=== PATIENT | male | born 1990 | race Caucasian/White ===

== ENCOUNTER 2018-02-24 06:40 | Emergency (ER) | payer OTHER ==
[~2018-02-24] VITALS: Ht 175.3 cm; Wt 123.9 kg
[~2018-02-24 06:40] MED LIST: LISI30TA6 PO; METF1000 PO; ZIPR60CA1 PO
[2018-02-24 06:48] VITALS: BP 151/90
--- NOTE | 2018-02-24 06:54 | NUR ---
27 Y/O M BIBA W/C/O PRESSURE CHEST PAIN WHICH RADIATES TO R ARM. PER EMS ASPIRIN 324MG GIVEN PO, 0.4MG GIVEN SUBLINGUAL X 1. PER PT PAIN WAS RELIEVED AFTER ASPIRIN AND NITRO. PAIN 0/10 AT THE MOMENT. MED HX DM,HYPERLIPEDEMIA, DM, BIPOLAR DISORDER, SCHIZOPHRENIA, AND ANXIETY. ER MD MADE AWARE.
--- NOTE | 2018-02-24 07:10 | NUR ---
Pt report given to NEY TALLEY. Transfer of care at this time.
--- NOTE | 2018-02-24 07:15 | NUR ---
REPORT RECEIVED FROM NEY KO. XRAY AT BEDSIDE.
[2018-02-24] MEDS ORDERED: LORazepam 2 MG/ML VIAL IVP ONE (07:45)
[2018-02-24 07:47] LABS: BASOPHILS # (AUTO) 0.3 K/uL (0.00-0.22); BASOPHILS % (AUTO) 2.8 % (0.0-2.0); EOSINOPHILS # (AUTO) 0.1 K/uL (0-0.4); EOSINOPHILS % (AUTO) 0.9 % (0.0-4.0); HEMATOCRIT 48.8 % (36-52); HEMOGLOBIN 16.7 g/dL (12.0-18.0); LYMPHOCYTES # (AUTO) 1.9 K/uL (2.0-11.5); LYMPHOCYTES % (AUTO) 20.7 % (20.5-51.1); MEAN CORPUSCULAR HEMOGLOBIN 30 pg (27-31); MEAN CORPUSCULAR HGB CONC 34 g/dL (33-37); MEAN CORPUSCULAR VOLUME 86.6 fL (80-94); MONOCYTES # (AUTO) 0.5 K/uL (0.8-1.0); MONOCYTES % (AUTO) 5.4 % (1.7-9.3); NEUTROPHILS # (AUTO) 6.5 K/uL (1.8-7.7); NEUTROPHILS % (AUTO) 70.2 % (42.2-75.2); PLATELET COUNT (AUTO) 260 K/uL (140-450); RED BLOOD CELL COUNT(AUTO) 5.64 MIL/uL (4.20-6.10); RED CELL DISTRIBUTION WIDTH 12.9 % (11.6-13.7); WHITE BLOOD COUNT (AUTO) 9.2 K/uL (4.8-10.8)
[2018-02-24 07:56] LABS: CARBON DIOXIDE 22.7 mmol/L (21-32); CREATININE 0.9 mg/dL (0.7-1.3); POTASSIUM 3.7 mmol/L (3.5-5.1)
--- NOTE | 2018-02-24 08:00 | NUR ---
Pt hyperventilating at this time. Pulse and BP high at this time, pt breathing heavily. O2 sat 99%. NSR. Pt given a bag to breathe in and out of, pulse went back down to 74 and blood pressure reduced back down 128/74. O2 sat remains 99%. Pt calmed down and is now resting in bed. ER notified. Pt needs met at this time. Will continue to monitor.
[2018-02-24 08:01] LABS: ALBUMIN 3.5 g/dL (3.4-5.0); TOTAL BILIRUBIN 0.6 mg/dL (0.0-1.0)
[2018-02-24 09:09] VITALS: BP 127/84
== END 2018-02-24 09:09 | disposition home or self-care (01) ==
LOC: MED 06:40
DX: R07.89 Other chest pain (principal); I10 Essential (primary) hypertension; E11.9 Type 2 diabetes mellitus without complications; F17.210 Nicotine dependence, cigarettes, uncomplicated; Z79.84 Long term (current) use of oral hypoglycemic drugs
CPT/HCPCS: 36415; 71045; 80053; 84484; 85025; 93005; 96374; 99285; J2060; Q0092

== ENCOUNTER 2018-02-25 19:43 | Emergency (ER) | payer OTHER ==
[~2018-02-25] VITALS: Ht 172.7 cm; Wt 117.9 kg
[2018-02-25 19:50] VITALS: BP 141/85
--- NOTE | 2018-02-25 19:54 | NUR ---
TO LOBBY A/W BED, AMB, VSS, EKG DONE,NSR ERMD NOTED.
--- NOTE | 2018-02-25 21:54 | NUR ---
27/M C/O CP RADIATING TO RIGHT ARM, SOB, AND SEVERE ANXIETY X2 WEEKS. PATIENT STATES HE HAS BEEN IN AND OUR OF HOSPITALS FOR THE PAST 2 WEEKS D/T SEVERE ANXIETY. PATIENT HAD A FOLLOW UP WITH PCP TODAY WHO INCREASED HIS DOSE OF HYDROXYZINE AND TOLD HIM TO NOT TAKE GEODON D/T THE WAY IT MAKES HIM FEEL. PATIENT IS NOT IN DISTRESS AT THIS TIME. RR EVEN AND UNLABORED. PATIENT DENIES SOB AT THIS TIME. PATIENT STATES 1/10 CHEST PAIN AT THIS TIME. PATIENT IS A&OX4. NO SIGNS OR SYMPTOMS OF ACUTE DISTRESS NOTED. PATIENT DENIES ANY THOUGHTS OF HURTING HIMSELF OR OTHERS. WILL CONTINUE TO MONITOR.
[2018-02-25 22:36] VITALS: BP 128/72
--- NOTE | 2018-02-25 22:38 | NUR ---
Patient discharged with v/s stable. Written and verbal after care instructions given and explained. Patient alert, oriented and verbalized understanding of instructions. Ambulatory with steady gait. All questions addressed prior to discharge. ID band removed. Patient advised to follow up with PMD. Rx of XANAX given. PATIENT STATES HE DOES NOT WANT TO TAKE THIS MEDICATION. PATIENT WAS ASKED IF THERE WAS AN ALTERNATIVE HE WAS LOOKING FOR, PATIENT DENIES ANY ALTERNATIVE. PATIENT STATES HE WILL KEEP PRESCRIPTION IN CASE HE CHANGES HIS MIND. Patient educated on indication of medication including possible reaction and side effects. Opportunity to ask questions provided and answered.
== END 2018-02-25 22:38 | disposition home or self-care (01) ==
LOC: MED 19:43
DX: F41.9 Anxiety disorder, unspecified (principal); E11.9 Type 2 diabetes mellitus without complications; I10 Essential (primary) hypertension; F20.9 Schizophrenia, unspecified; F31.9 Bipolar disorder, unspecified; Z79.84 Long term (current) use of oral hypoglycemic drugs
CPT/HCPCS: 71045; 99284

== ENCOUNTER 2020-06-05 21:21 | Emergency (ER) | payer OTHER ==
[~2020-06-05] VITALS: Ht 172.7 cm; Wt 121.1 kg
[2020-06-05 21:25] VITALS: BP 146/98
--- NOTE | 2020-06-05 21:28 | NUR ---
MARY MONTGOMERY, TO LOBBY AWAITNG BED IN ED. IN STABLE CONDITION.
--- NOTE | 2020-06-05 21:48 | NUR ---
PT AMBULATED TO ER BED 3 W/ STEADY GAIT.
--- NOTE | 2020-06-05 21:56 | NUR ---
29/M WITH C/O CONSTIPATION AND GENERALIZED ABDOMINAL PAIN SECONDARY TO TAKING MEDICATION AFTER A SURGERY FOR AN INGROWN TOENAIL. PT REPORTS LAST BM OF 2 DAYS AGO. ABD IS SOFT NON TENDER, BOWEL SOUNDS PRESENT. PT APPEARS IN NO DISTRESS, PLAYING ON CELL PHONE. IN BED FOR MSE.
--- NOTE | 2020-06-05 22:19 | NUR ---
PT TAKEN TO XRAY VIA W/C
[2020-06-05] MEDS ORDERED: SODIUM PHOSPHATE 118 ML ENEM RC ONE (23:10)
[2020-06-05] MEDS ORDERED: MAGNESIUM CITRATE 300 ML BTL PO ONE (23:10)
--- NOTE | 2020-06-05 23:20 | NUR ---
CALLED CLINICAL RESOURCE DIRECTOR FOR [facility], NOT STOCKED IN ER , CLINICAL RESOURCE DIRECTOR STATED WILL CALL BACK
[2020-06-06 00:15] VITALS: BP 146/98
--- NOTE | 2020-06-06 00:15 | NUR ---
Patient discharged with v/s stable. Written and verbal after care instructions given and explained. Patient alert, oriented and verbalized understanding of instructions. Ambulatory with steady gait. All questions addressed prior to discharge. ID band removed. Patient advised to follow up with PMD. Rx of MAGNESIUM CITRATE given. Patient educated on indication of medication including possible reaction and side effects. Opportunity to ask questions provided and answered.
== END 2020-06-06 00:15 | disposition home or self-care (01) ==
LOC: MED 21:21
DX: K59.00 Constipation, unspecified (principal); E11.9 Type 2 diabetes mellitus without complications; E07.9 Disorder of thyroid, unspecified; F20.9 Schizophrenia, unspecified; I10 Essential (primary) hypertension; Z79.899 Other long term (current) drug therapy
CPT/HCPCS: 74018; 99283